=== PATIENT | male | born 1995 | race Caucasian/White ===

== ENCOUNTER 2023-10-08 18:57 | Emergency (ER) | payer SELFPAY ==
--- NOTE | 2023-10-08 19:35 | EDPHYS ---
Physician Documentation [facility] Name: Ming Tracy Jr Age: 28 yrs Sex: Male : 1995 Arrival Date: 10/08/2023 Time: 18:57 Bed 2 Private MD: ED Physician Meggan Campo HPI: 10/08 19:31 This 28 yrs old Male presents to ER via Ambulatory with complaints of Sore Throat, sp3 Swollen tonsils. 19:31 28-year-old male with no significant past medical history presents with chief complaint sp3 of sore throat and enlarged tonsils after sick contact with his significant other. Patient denies fever, body aches, cough, chest pain, shortness of breath abdominal pain, vomiting, diarrhea, or any other signs or symptoms on ROS at this time.. Historical: - Allergies: 19:29 No Known Allergies; jb4 - Home Meds: 19:29 None [Active]; jb4 - PMHx: 19:29 None; jb4 - PSHx: 19:29 None; jb4 - Immunization history:: Adult Immunizations up to date. - Social history:: Smoking status: Reported history of juuling and/or vaping. ROS: 19:32 Constitutional: Negative for fever, chills, and weight loss, Eyes: Negative for injury, sp3 pain, redness, and discharge, Neck: Negative for injury, pain, and swelling, Cardiovascular: Negative for chest pain, palpitations, and edema, Respiratory: Negative for shortness of breath, cough, wheezing, and pleuritic chest pain, Abdomen/GI: Negative for abdominal pain, nausea, vomiting, diarrhea, and constipation, Back: Negative for injury and pain, MS/Extremity: Negative for injury and deformity, Skin: Negative for injury, rash, and discoloration, Neuro: Negative for headache, weakness, numbness, tingling, and seizure, Psych: Negative for depression, anxiety, suicide ideation, homicidal ideation, and hallucinations, Allergy/Immunology: Negative for hives, rash, and allergies, Endocrine: Negative for neck swelling, polydipsia, polyuria, polyphagia, and marked weight changes, 19:32 All other systems are negative, Exam: 19:32 Constitutional: This is a well developed, well nourished patient who is awake, alert, sp3 and in no acute distress. Head/Face: Normocephalic, atraumatic. Eyes: Pupils equal round and reactive to light, extra-ocular motions intact. Lids and lashes normal. Conjunctiva and sclera are non-icteric and not injected. Cornea within normal limits. Periorbital areas with no swelling, redness, or edema. Neck: Trachea midline, no thyromegaly or masses palpated, and no cervical lymphadenopathy. Supple, full range of motion without nuchal rigidity, or vertebral point tenderness. No Meningismus. Chest/axilla: Normal chest wall appearance and motion. Nontender with no deformity. No lesions are appreciated. Cardiovascular: Regular rate and rhythm with a normal S1 and S2. No gallops, murmurs, or rubs. Normal PMI, no JVD. No pulse deficits. Respiratory: Lungs have equal breath sounds bilaterally, clear to auscultation and percussion. No rales, rhonchi or wheezes noted. No increased work of breathing, no retractions or nasal flaring. Abdomen/GI: Soft, non-tender, with normal bowel sounds. No distension or tympany. No guarding or rebound. No evidence of tenderness throughout. Skin: Warm, dry with normal turgor. Normal color with no rashes, no lesions, and no evidence of cellulitis. MS/ Extremity: Pulses equal, no cyanosis. Neurovascular intact. Full, normal range of motion. Neuro: Awake and alert, GCS 15, oriented to person, place, time, and situation. Cranial nerves II-XII grossly intact. Motor strength 5/5 in all extremities. Sensory grossly intact. Cerebellar exam normal. Normal gait. Psych: Awake, alert, with orientation to person, place and time. Behavior, mood, and affect are within normal limits. 19:32 ENT: Patient has enlarged tonsils with plaques.. Vital Signs: 19:28 BP 144 / 90; Pulse 84; Resp 16; Temp 99.3(O); Pulse Ox 100% on R/A; Weight 77.11 kg jb4 (R); Height 5 ft. 8 in. ; Pain 7/10; 19:28 Body Mass Index 25.85 (77.11 kg, 172.72 cm) jb4 19:28 Pain Scale: Adult jb4 MDM: 19:28 Patient medically screened. sp3 19:33 Data reviewed: vital signs, nurses notes. ED course: Patient is already been taken sp3 ibuprofen. We will administer Decadron 10 mg IM and discharge patient home on Augmentin p.o. with follow-up to his PCP.. Administered Medications: 19:41 Drug: Dexamethasone IM 10 mg IM once Route: IM; Site: right deltoid; jb4 Disposition Summary: 10/08/23 19:34 Discharge Ordered Notes: Location: Home sp3 Condition: Stable sp3 Diagnosis - Acute tonsillitis, unspecified sp3 Followup: sp3 - With: Private Physician - When: Upon discharge from the Emergency Department - Reason: Continuance of care Discharge Instructions: - Discharge Summary Sheet sp3 - Tonsillitis sp3 Forms: - Medication Reconciliation Form sp3 - Thank You Letter sp3 - Antibiotic Education sp3 - Prescription Opioid Use sp3 - Patient Portal Instructions sp3 - Leadership Thank You Letter sp3 Prescriptions: - Augmentin 875-125 mg Oral tablet - take 1 tablet ORAL route every 12 hours for 7 days; 14 tablet; Refills: 0, sp3 Product Selection Permitted Signatures: Nathaniel Hammonds RN RN jb4 Meggan Campo MD MD sp3
--- NOTE | 2023-10-08 19:35 | ER ---
Nurse's Notes [facility] Name: Ming Tracy Jr Age: 28 yrs Sex: Male : 1995 Arrival Date: 10/08/2023 Time: 18:57 Bed 2 Private MD: Diagnosis: Acute tonsillitis, unspecified Presentation: 10/08 19:28 Chief complaint: Patient states: I have swollen tonsils and it hurts when i swallow. I jb4 have had this before. Coronavirus screen: At this time, the client does not indicate any symptoms associated with coronavirus-19. Ebola Screen: No symptoms or risks identified at this time. Initial Sepsis Screen: Does the patient meet any 2 criteria? No. Patient's initial sepsis screen is negative. Does the patient have a suspected source of infection? No. Patient's initial sepsis screen is negative. Risk Assessment: Do you want to hurt yourself or someone else? Patient reports no desire to harm self or others. Onset of symptoms was October 08, 2023. Transition of care: patient was not received from another setting of care. 19:28 Method Of Arrival: Ambulatory jb4 19:28 Acuity: MARYBETH 4 jb4 Historical: - Allergies: 19:29 No Known Allergies; jb4 - Home Meds: 19:29 None [Active]; jb4 - PMHx: 19:29 None; jb4 - PSHx: 19:29 None; jb4 - Immunization history:: Adult Immunizations up to date. - Social history:: Smoking status: Reported history of juuling and/or vaping. Screenin:29 [facility] ED Fall Risk Assessment (Adult) History of falling in the last 3 months, jb4 including since admission No falls in past 3 months (0 pts) Confusion or Disorientation No (0 pts) Score/Fall Risk Level 0 - 2 = Low Risk Oriented to surroundings, Maintained a safe environment. Abuse screen: Denies threats or abuse. Nutritional screening: No deficits noted. Tuberculosis screening: No symptoms or risk factors identified. Assessment: 19:29 General: Appears in no apparent distress. comfortable, Behavior is calm, cooperative, jb4 appropriate for age. Pain: Complains of pain in throat Pain does not radiate. Pain currently is 7 out of 10 on a pain scale. Neuro: Level of Consciousness is awake, alert, obeys commands, Oriented to person, place, time, situation. Cardiovascular: Patient's skin is warm and dry. Respiratory: Airway is patent Respiratory effort is even, unlabored, Respiratory pattern is regular, symmetrical. GI: No signs and/or symptoms were reported involving the gastrointestinal system. : No signs and/or symptoms were reported regarding the genitourinary system. EENT: Throat is reddened has enlarged tonsils bilaterally with gag reflex present. Derm: Skin is intact, Skin is pink, warm \T\ dry. Musculoskeletal: Circulation, motion, and sensation intact. Range of motion:. Vital Signs: 19:28 BP 144 / 90; Pulse 84; Resp 16; Temp 99.3(O); Pulse Ox 100% on R/A; Weight 77.11 kg jb4 (R); Height 5 ft. 8 in. ; Pain 7/10; 19:28 Body Mass Index 25.85 (77.11 kg, 172.72 cm) jb4 19:28 Pain Scale: Adult 4 ED Course: 19:01 Patient arrived in ED. im 19:02 Meggan Campo MD is Attending Physician. sp3 19:27 Nathaniel Hammonds RN is Primary Nurse. jb4 19:29 Triage completed. jb4 19:29 Arm band placed on right wrist. jb4 19:29 Patient has correct armband on for positive identification. Bed in low position. Call jb4 light in reach. Side rails up X 1. Client placed on continuous cardiac and pulse oximetry monitoring. NIBP monitoring applied. 19:41 No provider procedures requiring assistance completed. Patient did not have IV access jb4 during this emergency room visit. Administered Medications: 19:41 Drug: Dexamethasone IM 10 mg IM once Route: IM; Site: right deltoid; jb4 Outcome: 19:34 Discharge ordered by . sp3 19:41 Discharged to home ambulatory, with family, jb4 19:41 Condition: stable 19:41 Discharge instructions given to patient, Instructed on discharge instructions, follow up and referral plans. medication usage, Demonstrated understanding of instructions, follow-up care, medications, Prescriptions given X 1, 19:42 Patient left the ED. jb4 Signatures: Nathaniel Hammonds, RN RN jb4 Meggan Campo MD MD sp3 Ceci Zafar
[2023-10-08] MEDS ORDERED: dexAMETHasone 10 MG/ML VIAL ONE (19:50)
[2023-10-08 19:57] VITALS: BP 144/90; TEMP 99.3; O2SAT 100
== END 2023-10-08 19:42 | disposition home or self-care (01) ==
LOC: ER 18:57
DX: J03.90 Acute tonsillitis, unspecified (principal)
CPT/HCPCS: 96372; 99284; J1100

== ENCOUNTER 2024-07-26 08:59 | Emergency (ER) | payer SELFPAY ==
[2024-07-26] MEDS ORDERED: NA CHLORIDE 0.9% 1,000 ML ONE (09:43)
[2024-07-26 10:14] LABS: Absolute Lymphocytes (CBC) 2.1 K/uL (0.7-4.9); Absolute Monocytes 1.7 K/uL (0.1-1.3); Absolute Neutrophil 10.4 K/uL (1.8-8.0); Basophils % 0.3 % (0-1.3); Hematocrit 41.5 % (39.6-49.0); Hemoglobin 13.7 g/dL (13.6-17.9); Lymphocytes % 14.6 % (15.3-44.8); MCH 28.1 pg (27.0-35.0); MCHC 32.9 g/dL (32.0-36.0); MCV 85.3 fL (80-100); MPV 9.3 fL (7.6-11.3); Monocytes % 12.1 % (3.3-12.3); Nucleated Red Blood Cells % 0.1 % (0-0); Platelets 300 thou/uL (152-406); RBC Red Blood Cell Count 4.87 M/uL (4.33-5.43); Red Cell Distribution Width 13.2 % (12.1-15.2)
[2024-07-26 10:18] LABS: PT Prothrombin Time 13.4 SECONDS (9.4-12.5); PTT, Activated Partial Thromb 29.2 SECONDS (24.3-36.9); Protime INR 1.2
[2024-07-26 10:34] LABS: ALT/SGPT 47 U/L (16-61); AST/SGOT 38 U/L (15-37); Albumin 4.8 g/dL (3.4-5.0); Albumin/Globulin Ratio 1.5 (1.1-1.8); Alkaline Phosphatase 62 U/L (45-117); Anion Gap 11.9 mEq/L (5.0-15.0); BUN Blood Urea Nitrogen 28 mg/dL (7-18); Bicarbonate 27 mEq/L (21-32); Bilirubin Direct 0.2 mg/dL (0-0.2); Bilirubin Indirect, Calculated 0.7 mg/dL (0.2-0.8); Bilirubin Total 0.9 mg/dL (0.2-1.0); Globulin 3.2 g/dL (2.3-3.5); Glomerular Filtration Rate 101 ml/min (=/>90); Glucose Level 90 mg/dL (74-106); Potassium 3.9 mEq/L (3.5-5.1); Sodium Level 138 mEq/L (136-145)
[2024-07-26] MEDS ORDERED: HALOPERIDOL LACT 5 MG/ML INJ ONE (12:41)
--- NOTE | 2024-07-26 13:02 | ER ---
Nurse's Notes [facility] Name: Ming Tracy Jr Age: 29 yrs Sex: Male : 1995 Arrival Date: 07/26/2024 Time: 08:59 Bed 17 Private MD: Diagnosis: Hallucinations, unspecified Presentation: 07/26 09:04 Chief complaint: Glen EDMONDS states, "He hasn't taken his Depakote in weeks and mb9 hasn't slept in a few days. He has no SI/HI but says Eliazar is talking to him and he just wants to get evaluated.". Coronavirus screen: Vaccine status: Patient reports being unvaccinated. Ebola Screen: No symptoms or risks identified at this time. Initial Sepsis Screen: Does the patient meet any 2 criteria? No. Patient's initial sepsis screen is negative. Does the patient have a suspected source of infection? No. Patient's initial sepsis screen is negative. Risk Assessment: Do you want to hurt yourself or someone else? Patient reports no desire to harm self or others. Onset of symptoms was July 26, 2024. 09:04 Acuity: MARYBETH 2 mb9 09:04 Method Of Arrival: Law Enforcement: [place] [employer] mb9 Historical: - Allergies: 09:07 No Known Allergies; mb9 - Home Meds: 09:07 Depakote 500 mg Oral tablet, delayed release (enteric coated) [Active]; mb9 - PMHx: 09:07 Schizophrenia; Bipolar disorder; mb9 - PSHx: 09:07 None; mb9 - Immunization history:: Adult Immunizations up to date. - Infectious Disease History:: Denies. - Social history:: Smoking status: Patient denies any tobacco usage or history of. - Family history:: not pertinent. - Hospitalizations: : No recent hospitalization is reported. Screenin:30 [facility] ED Fall Risk Assessment (Adult) History of falling in the last 3 months, kc6 including since admission No falls in past 3 months (0 pts) Confusion or Disorientation No (0 pts) Intoxicated or Sedated No (0 pts) Impaired Gait No (0 pts) Mobility Assist Device Used No (0 pt) Altered Elimination No (0 pt) Score/Fall Risk Level 0 - 2 = Low Risk. Abuse screen: Denies threats or abuse. Denies injuries from another. Nutritional screening: No deficits noted. Tuberculosis screening: No symptoms or risk factors identified. Assessment: 08:59 General: Appears in no apparent distress. comfortable, well groomed, well developed, [facility] Behavior is calm, cooperative, appropriate for age. Pain: Denies pain. Neuro: Level of Consciousness is awake, alert, obeys commands, Oriented to person, place, time, situation, Appropriate for age. Cardiovascular: Denies chest pain, shortness of breath, Heart tones S1 S2 present Capillary refill < 3 seconds Rhythm is sinus tachycardia. Respiratory: Airway is patent Trachea midline Respiratory effort is even, unlabored, Respiratory pattern is regular, symmetrical. GI: No signs and/or symptoms were reported involving the gastrointestinal system. : No signs and/or symptoms were reported regarding the genitourinary system. EENT: No signs and/or symptoms were reported regarding the EENT system. Derm: No signs and/or symptoms reported regarding the dermatologic system. Skin is intact, is healthy with good turgor, Skin is pink, warm \\T\\ dry. Musculoskeletal: No signs and/or symptoms reported regarding the musculoskeletal system. Circulation, motion, and sensation intact. Capillary refill < 3 seconds, Range of motion: intact in all extremities. 09:07 Reassessment: Glen EDMONDS at bedside. [facility] 09:30 Reassessment: Dr. Welch at bedside speaking with pt and . [facility] 09:30 Reassessment: directed pt to the bathroom for urine sample. pt not able to provide [facility] sample at this time. 09:47 Reassessment: pt appears to be escalating with in the room. asked to leave at [facility] this time and informed that she will be contacted if she is needed or with any updates. verbalizes understanding. Azeb Purcell () [phone] or Darius (sister) [phone]. 09:59 Reassessment: Patient appears in no apparent distress at this time. No changes from [facility] previously documented assessment. Patient and/or family updated on plan of care and expected duration. Pain level reassessed. Patient is alert, oriented x 3, equal unlabored respirations, skin warm/dry/pink. 10:48 Reassessment: Patient appears in no apparent distress at this time. No changes from [facility] previously documented assessment. Patient and/or family updated on plan of care and expected duration. Pain level reassessed. Patient is alert, oriented x 3, equal unlabored respirations, skin warm/dry/pink. 11:31 Reassessment: Patient appears in no apparent distress at this time. No changes from [facility] previously documented assessment. Patient and/or family updated on plan of care and expected duration. Pain level reassessed. Patient is alert, oriented x 3, equal unlabored respirations, skin warm/dry/pink. 12:27 Reassessment: directed pt to bathroom for urine sample. pt flushed toilet and exited [facility] bathroom with an empty specimen cup. pt provided PO fluids and snack and educated on the need for urine sample. 12:38 Reassessment: Patient appears in no apparent distress at this time. No changes from [facility] previously documented assessment. Patient and/or family updated on plan of care and expected duration. Pain level reassessed. Patient is alert, oriented x 3, equal unlabored respirations, skin warm/dry/pink. 13:53 Reassessment: Patient appears in no apparent distress at this time. No changes from [facility] previously documented assessment. Patient and/or family updated on plan of care and expected duration. Pain level reassessed. Patient is alert, oriented x 3, equal unlabored respirations, skin warm/dry/pink. 14:53 Reassessment: Patient appears in no apparent distress at this time. No changes from [facility] previously documented assessment. Patient and/or family updated on plan of care and expected duration. Pain level reassessed. Patient is alert, oriented x 3, equal unlabored respirations, skin warm/dry/pink. 14:53 Reassessment: pt appears to have discontinued his own IV. states, "I'm sorry but I [facility] didn't trust you.". 15:30 Reassessment: [facility] at bedside evaluating patient. [facility] 16:41 Reassessment: [facility] recommending inpatient at this time. [facility] 17:41 Reassessment: Patient appears in no apparent distress at this time. No changes from [facility] previously documented assessment. Patient and/or family updated on plan of care and expected duration. Pain level reassessed. Patient is alert, oriented x 3, equal unlabored respirations, skin warm/dry/pink. 18:35 Reassessment: Patient appears in no apparent distress at this time. No changes from kc6 previously documented assessment. Patient and/or family updated on plan of care and expected duration. Pain level reassessed. Patient is alert, oriented x 3, equal unlabored respirations, skin warm/dry/pink. 19:10 Reassessment: Patient appears in no apparent distress at this time. Patient and/or cp4 family updated on plan of care and expected duration. Pain level reassessed. Patient is alert, oriented x 3, equal unlabored respirations, skin warm/dry/pink. Patient sleeping. 20:00 Reassessment: Patient appears in no apparent distress at this time. Patient and/or cp4 family updated on plan of care and expected duration. Pain level reassessed. Patient is alert, oriented x 3, equal unlabored respirations, skin warm/dry/pink. 21:00 Reassessment: Patient appears in no apparent distress at this time. Patient and/or cp4 family updated on plan of care and expected duration. Pain level reassessed. Patient is alert, oriented x 3, equal unlabored respirations, skin warm/dry/pink. 22:00 Reassessment: Patient appears in no apparent distress at this time. Patient and/or cp4 family updated on plan of care and expected duration. Pain level reassessed. Patient is alert, oriented x 3, equal unlabored respirations, skin warm/dry/pink. 23:00 Reassessment: Patient appears in no apparent distress at this time. Patient and/or cp4 family updated on plan of care and expected duration. Pain level reassessed. Patient is alert, oriented x 3, equal unlabored respirations, skin warm/dry/pink. 07/27 00:00 Reassessment: Patient appears in no apparent distress at this time. Patient and/or cp4 family updated on plan of care and expected duration. Pain level reassessed. Patient is alert, oriented x 3, equal unlabored respirations, skin warm/dry/pink. 01:00 Reassessment: Patient appears in no apparent distress at this time. Patient and/or cp4 family updated on plan of care and expected duration. Pain level reassessed. Patient is alert, oriented x 3, equal unlabored respirations, skin warm/dry/pink. 02:00 Reassessment: Patient appears in no apparent distress at this time. Patient and/or cp4 family updated on plan of care and expected duration. Pain level reassessed. Patient is alert, oriented x 3, equal unlabored respirations, skin warm/dry/pink. 03:00 Reassessment: Patient appears in no apparent distress at this time. Patient and/or cp4 family updated on plan of care and expected duration. Pain level reassessed. Patient is alert, oriented x 3, equal unlabored respirations, skin warm/dry/pink. 04:00 Reassessment: Patient appears in no apparent distress at this time. Patient and/or cp4 family updated on plan of care and expected duration. Pain level reassessed. Patient is alert, oriented x 3, equal unlabored respirations, skin warm/dry/pink. 05:00 Reassessment: Patient appears in no apparent distress at this time. Patient and/or cp4 family updated on plan of care and expected duration. Pain level reassessed. Patient is alert, oriented x 3, equal unlabored respirations, skin warm/dry/pink. 06:00 Reassessment: Patient appears in no apparent distress at this time. Patient and/or cp4 family updated on plan of care and expected duration. Pain level reassessed. Patient is alert, oriented x 3, equal unlabored respirations, skin warm/dry/pink. 07:01 Reassessment: Patient and/or family updated on plan of care and expected duration. Pain rs5 level reassessed. Patient is alert, oriented x 3, equal unlabored respirations, skin warm/dry/pink. Patient denies pain at this time. Patient states feeling better. To bedside for t denies HI or SI at this moment. Psych: 07/26 08:59 [place] Suicide Severity Screening: In the past month, have you wished you were kc6 or wished you could go to sleep and not wake up? Patient responds "No." "In the past month, have you actually had any thoughts of killing yourself?" Patient responds "no." "In your lifetime, have you ever done anything, started to do anything, or prepared to do anything to end your life?" Patient responds "no.". Subjective: Delusions are nondenominational, Having thoughts of suicide. Denies suicidal plan. Objective: Patient is cooperative, Speech is normal, Affect is flat. Interventions: Searched person for dangerous items. Urine collected and sent for urine drug test. Safety Checks: Personal items have not been removed. Door is open. No visitors are present at this time. Pt denies substance abuse. Commitment: Patient will be a voluntary commitment. Vital Signs: 09:04 BP 145 / 95; Pulse 130; Resp 18; Temp 98; Pulse Ox 97% ; Weight 79.38 kg; Height 5 ft. mb9 8 in. ; Pain 0/10; 09:30 BP 148 / 103; Pulse 120; Resp 19 S; Pulse Ox 97% on R/A; kc6 10:09 BP 149 / 84; Pulse 112; Resp 18 S; Pulse Ox 99% on R/A; kc6 10:48 BP 140 / 100; Pulse 111; Resp 18 S; Pulse Ox 98% on R/A; kc6 11:31 BP 135 / 94; Pulse 106; Resp 16 S; Pulse Ox 97% on R/A; kc6 12:38 BP 144 / 96; Pulse 111; Resp 19 S; Pulse Ox 98% on R/A; kc6 13:53 Pulse 96; kc6 07/27 03:00 BP 111 / 61; Pulse 73; Resp 16; Pulse Ox 98% ; cp4 07/26 09:04 Body Mass Index 26.61 (79.38 kg, 172.72 cm) mb9 07/26 09:04 Pain Scale: Adult 9 ED Course: 07/26 08:59 Patient has correct armband on for positive identification. Bed in low position. Call [facility] light in reach. Side rails up X 1. Pulse ox on. NIBP on. Door closed. Noise minimized. Visitors limited. Lights dimmed. Moved to private room. Warm blanket given. Pillow given. 09:00 Patient arrived in ED. bd 09:04 Arm band placed on. mb9 09:06 Sam Welch MD is Attending Physician. rn 09:07 Triage completed. mb9 09:08 Meaghan Martin, MARA is Primary Nurse. kc6 10:09 Inserted saline lock: 20 gauge in right antecubital area, using aseptic technique. kc6 Blood collected. Flushed with 10 mL NS. Patient maintains SpO2 saturation greater than 95% on room air. 12:59 Diet: Patient given a regular meal tray. Patient given water. Tolerated well. kc6 13:13 contacted [facility] to have a screener evaluate pt. bd 16:15 Warm blanket given. kc6 16:23 Urine Drug Screen Sent. kc6 07/27 08:19 Attending Physician role handed off by Sam Welch MD rt 08:19 Jayjay Jimenez MD is Attending Physician. rt Administered Medications: 07/26 10:09 Drug: NS 0.9% IV 1000 ml IV at 1000 ml once Route: IV; Rate: 1000 ml; Site: right kc6 antecubital; 15:50 Follow up: Response: No adverse reaction; IV Status: Completed infusion; IV Intake: kc6 1000ml 12:59 Drug: Haloperidol IVP 5 mg IVP once Route: IVP; Site: right antecubital; kc6 13:53 Follow up: Response: No adverse reaction; Anxiety decreased; RASS: Drowsy (-1) kc6 Intake: 15:50 IV: 1000ml; Total: 1000ml. kc6 Outcome: 13:02 ER care complete, transfer ordered by . rn 07/27 08:22 Discharge ordered by . rt 08:44 Patient left the ED. rs5 Signatures: Lisa Roman Roman, MD MD rn Campbell, Kaitlyn, RN RN kc6 Jennifer Baker RN RN mb9 Jayjay Jimenez MD MD rt Juan Chew RN RN rs5 Susi Patton 4
--- NOTE | 2024-07-26 13:02 | EDPHYS ---
Physician Documentation 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 10:53 The patient presents to the emergency department with psychosis. Onset: The rn symptoms/episode began/occurred at an unknown time. Severity of symptoms: At their worst the symptoms were moderate in the emergency department the symptoms are unchanged. The patient has experienced similar episodes in the past. Spouse called police this morning because she states for the last 2 weeks patient has declined, has having auditory hallucinations, took himself off of his Depakote months ago without doctor's orders. Patient has history of schizophrenia. Told in the past has bipolar disorder. Patient reports talking to God. Denies homicidal or suicidal ideations. No intent to harm .. Historical: - Allergies: 09:07 No Known Allergies; mb9 - Home Meds: 09:07 Depakote 500 mg Oral tablet, delayed release (enteric coated) [Active]; mb9 - PMHx: 09:07 Schizophrenia; Bipolar disorder; mb9 - PSHx: 09:07 None; mb9 - Immunization history:: Adult Immunizations up to date. - Infectious Disease History:: Denies. - Social history:: Smoking status: Patient denies any tobacco usage or history of. - Family history:: not pertinent. - Hospitalizations: : No recent hospitalization is reported. ROS: 10:53 Constitutional: Negative for fever, chills, and weight loss, Eyes: Negative for injury, rn pain, redness, and discharge, Neck: Negative for injury, pain, and swelling, Cardiovascular: Negative for chest pain, palpitations, and edema, Respiratory: Negative for shortness of breath, cough, wheezing, and pleuritic chest pain, Abdomen/GI: Negative for abdominal pain, nausea, vomiting, diarrhea, and constipation, Back: Negative for injury and pain, : Negative for injury, bleeding, discharge, and swelling, MS/Extremity: Negative for injury and deformity, Skin: Negative for injury, rash, and discoloration, Neuro: Negative for headache, weakness, numbness, tingling, and seizure, Psych: Positive for hallucinations, negative for suicidal or homicidal ideation. Exam: 10:53 Constitutional: This is a well developed, well nourished patient who is awake, alert, rn and in no acute distress. Eyes: Pupils equal round and reactive to light, extra-ocular motions intact. Cardiovascular: Tachycardic, regular Respiratory: No increased work of breathing, no retractions or nasal flaring. Abdomen/GI: Soft, non-tender MS/ Extremity: Pulses equal, no cyanosis. Neuro: Awake and alert, GCS 15 15:56 ECG was reviewed by the Attending Physician. rn Vital Signs: 09:04 BP 145 / 95; Pulse 130; Resp 18; Temp 98; Pulse Ox 97% ; Weight 79.38 kg; Height 5 ft. mb9 8 in. ; Pain 0/10; 09:30 BP 148 / 103; Pulse 120; Resp 19 S; Pulse Ox 97% on R/A; kc6 10:09 BP 149 / 84; Pulse 112; Resp 18 S; Pulse Ox 99% on R/A; kc6 10:48 BP 140 / 100; Pulse 111; Resp 18 S; Pulse Ox 98% on R/A; kc6 11:31 BP 135 / 94; Pulse 106; Resp 16 S; Pulse Ox 97% on R/A; kc6 12:38 BP 144 / 96; Pulse 111; Resp 19 S; Pulse Ox 98% on R/A; kc6 13:53 Pulse 96; kc6 07/27 03:00 BP 111 / 61; Pulse 73; Resp 16; Pulse Ox 98% ; cp4 07/26 09:04 Body Mass Index 26.61 (79.38 kg, 172.72 cm) mb9 07/26 09:04 Pain Scale: Adult mb9 MDM: 07/26 09:06 Patient medically screened. rn 10:57 ED course: Patient reports that he is not human and he has not slept in days. States rn God does not sleep nor does he.. 13:01 Differential diagnosis: psychosis secondary to non-compliance. Data reviewed: vital rn signs, nurses notes, lab test result(s), and as a result, I will admit patient. Consideration of Admission/Observation Patient was admitted/placed on observation. Escalation of care including admission/observation considered. Counseling: I had a detailed discussion with the patient and/or guardian regarding the historical points, exam findings, and any diagnostic results supporting the discharge/admit diagnosis, lab results, the need for outpatient follow up, to return to the emergency department if symptoms worsen or persist or if there are any questions or concerns that arise at home. 07/27 08:23 ED course: I reevaluated patient, is calm, cooperative, has goal-directed thought. His rt hallucinations, never had homicidal, suicidal thoughts. Do not believe that he is an imminent threat to himself or others. Patient wishes to be discharged, to follow-up as an outpatient.. 07/26 09:34 Order name: Acetaminophen; Complete Time: 12:36 rn 07/26 09:34 Order name: Basic Metabolic Panel; Complete Time: 12:36 rn 07/26 09:34 Order name: CBC with Diff; Complete Time: 12:36 rn 07/26 09:34 Order name: ETOH Level; Complete Time: 12:36 rn 07/26 09:34 Order name: Hepatic Function; Complete Time: 12:36 rn 07/26 09:34 Order name: PT-INR; Complete Time: 12:36 rn 07/26 09:34 Order name: Ptt, Activated; Complete Time: 12:36 rn 07/26 09:34 Order name: Salicylate; Complete Time: 12:36 rn 07/26 09:34 Order name: Urine Drug Screen; Complete Time: 08:23 rn 07/26 09:34 Order name: EKG - Nurse/Tech; Complete Time: 10:09 rn 07/26 09:34 Order name: IV Saline Lock; Complete Time: 10: rn 07/26 09:34 Order name: Labs collected and sent; Complete Time: 10: rn 07/26 09:34 Order name: Suicide Screening ([place]); Complete Time: 10: rn EC/28 15:56 Rate is 106 beats/min. Rhythm is regular. QRS [place] is Normal. NM interval is normal. rn QRS interval is normal. QT interval is normal. No Q waves. T waves are Normal. No ST changes noted. Clinical impression: Sinus tachycardia. Interpreted by me. Reviewed by me. Administered Medications: 10:09 Drug: NS 0.9% IV 1000 ml IV at 1000 ml once Route: IV; Rate: 1000 ml; Site: right kc6 antecubital; 15:50 Follow up: Response: No adverse reaction; IV Status: Completed infusion; IV Intake: kc6 1000ml 12:59 Drug: Haloperidol IVP 5 mg IVP once Route: IVP; Site: right antecubital; kc6 13:53 Follow up: Response: No adverse reaction; Anxiety decreased; RASS: Drowsy (-1) kc6 Disposition Summary: 07/27/24 08:22 Discharge Ordered Notes: Location: Home rt Problem: new(07/27/24 08:22) rt Symptoms: have improved(07/27/24 08:22) rt Condition: Stable(07/27/24 08:22) rt Diagnosis - Hallucinations, unspecified(07/27/24 08:22) rt Followup: rt - With: Private Physician - When: 2 - 3 days - Reason: Discharge Instructions: - Discharge Summary Sheet rt - Schizophrenia rt Forms: - Medication Reconciliation Form rt - Antibiotic Education rt - Prescription Opioid Use rt - Patient Portal Instructions rt - Leadership Thank You Letter rt Signatures: Dispatcher [employer] Sam Salgado MD MD rn Campbell, Kaitlyn, RN RN kc6 Jennifer Baker RN RN mb9 Jayjay Jimenez MD MD rt Corrections: (The following items were deleted from the chart) 07/27 08:07/26 13:02 rn rt 07/27 13:02 Psych Facility rn rt 07/27 08:07/26 13:02 Higher level of care rn rt 07/27 08:07/26 13:02 Stable rn rt 07/27 13:02 an ongoing problem rn rt 07/27 08:07/26 13:02 have improved rn rt 07/27 08:07/26 13:02 Hallucinations, unspecified rn rt
[2024-07-26 22:00] LABS: Barbiturates NEGATIVE (NEGATIVE); Benzodiazepines NEGATIVE (NEGATIVE); Cocaine NEGATIVE (NEGATIVE); METHAMPHETAM NEGATIVE (NEGATIVE); Methadone NEGATIVE (NEGATIVE); Opiates NEGATIVE (NEGATIVE); Phencyclidine NEGATIVE (NEGATIVE); THC Cannibis NEGATIVE (NEGATIVE)
[2024-07-27 08:57] VITALS: TEMP 98
[2024-07-27 09:12] VITALS: O2SAT 98
[2024-07-27 09:15] VITALS: BP 111/61
== END 2024-07-27 08:44 | disposition home or self-care (01) ==
LOC: ER 08:59
DX: R44.3 Hallucinations, unspecified (principal)
CPT/HCPCS: 36415; 80048; 80076; 80143; 80179; 80307; 82077; 85025; 85610; 85730; J1630; J7030